=== PATIENT | female | born 1960 | race Caucasian/White ===

== ENCOUNTER 2019-07-30 17:52 | Emergency (ER) | payer BC, MEDICAID ==
[~2019-07-30] VITALS: Ht 160 cm; Wt 88.9 kg
--- NOTE | 2019-07-30 18:15 | NUR ---
INTERMITTENT POUNDING HEADACHE X 1 WEEK NO RELIEF FROM OTC MEDICATION, PT AWAKE, ALERT, -SOB, NAD NOTED, VSS, PENDING MD JOE
[2019-07-30 18:46] LABS: BASOPHILS # (AUTO) 0.1 /CMM (0.0-0.2); BASOPHILS % (AUTO) 1.1 % (0.0-2.0); EOSINOPHILS % (AUTO) 6.5 % (0.0-6.0); HEMATOCRIT 39 % (33-45); HEMOGLOBIN 13.6 g/dL (11.5-14.8); LYMPHOCYTES # (AUTO) 2.7 /CMM (0.8-4.8); LYMPHOCYTES % (AUTO) 34.6 % (20.0-44.0); MEAN CORPUSCULAR HGB CONC 35 g/dl (31.0-36.0); MEAN CORPUSCULAR VOLUME 92 fL (82-100); MONOCYTES # (AUTO) 0.7 /CMM (0.1-1.30); MONOCYTES % (AUTO) 8.3 % (2.0-12.0); NEUTROPHILS # (AUTO) 3.9 /CMM (1.8-8.9); NEUTROPHILS % (AUTO) 49.5 % (43.0-81.0); PLATELET COUNT (AUTO) 243 /CMM (150-450); RED BLOOD CELL COUNT(AUTO) 4.26 MIL/uL (4.0-5.2); WHITE BLOOD COUNT (AUTO) 7.9 K/uL (4.3-11.0)
[2019-07-30 18:57] LABS: CALCIUM, SERUM 9.5 mg/dL (8.5-10.1); CREATININE 0.7 mg/dL (0.6-1.3); POTASSIUM 3.8 mmol/L (3.5-5.1)
[2019-07-30] MEDS ORDERED: CT SWABBABLE VALVE TRANS SET 1 EA INFUS.SET MC ONE (19:01)
[2019-07-30] MEDS ORDERED: IOHEXOL-350 100 ML VIAL IV ONE (19:01)
[2019-07-30] MEDS ORDERED: IV NS 0.9% 250 ML IV ONE (19:01)
--- NOTE | 2019-07-30 21:09 | NUR ---
Patient discharged to home in stable condition. Written and verbal after care instructions given. Patient verbalizes understanding of instruction. IV removed. Catheter intact and site benign. Pressure and 4x4 applied to site. No bleeding noted.
[2019-07-30 21:38] VITALS: BP 149/82
== END 2019-07-30 21:09 | disposition home or self-care (01) ==
LOC: ER 17:58
DX: I63.81 Other cerebral infarction due to occlusion or stenosis of small artery (principal); R51 Headache; I10 Essential (primary) hypertension
CPT/HCPCS: 36415; 70496; 80048; 85025; 85730; 99284; J7050; Q9967

== ENCOUNTER 2021-01-17 02:02 | Emergency (ER) | payer BC, MEDICAID ==
[~2021-01-17] VITALS: Ht 162.6 cm; Wt 89.8 kg
[2021-01-17 02:34] VITALS: BP 154/85
--- NOTE | 2021-01-17 02:50 | NUR ---
SEEN BY DR SALGADO
[2021-01-17] MEDS ORDERED: FLUC200T PO (02:54)
[2021-01-17] MEDS ORDERED: FLUCONAZOLE (100 MG) 100 MG TABLET PO ONE (03:00)
[2021-01-17] MEDS ORDERED: FLUCONAZOLE (100 MG) 100 MG TABLET ONE (03:01)
== END 2021-01-17 03:08 | disposition home or self-care (01) ==
LOC: ER 02:05
DX: B37.9 Candidiasis, unspecified (principal); I10 Essential (primary) hypertension; Z60.2 Problems related to living alone